=== PATIENT | male | born 1945 | race Native Hawaiian/Other Pacific Islander ===

== ENCOUNTER 2017-01-12 08:50 | Day surgery (SDC) | payer MEDICARE, OTHER ==
[2017-01-04 17:31] VITALS: BMI 25.0
[2017-01-12] MEDS ORDERED: Bupivacaine-Epi 0.5%-1:200,000 PF Inj ONE (12:29)
[2017-01-12] MEDS ORDERED: Lactated Ringer's 1,000 ML IV ONE (12:43)
[2017-01-12] MEDS ORDERED: ceFAZolin IV 1 gm in Dextrose 1 GM/50 ML BAG IVPB ONE (12:47)
[2017-01-12] MEDS ORDERED: Midazolam 2 MG/2 ML VIAL ONE ×2 (12:51→12:53)
[2017-01-12] MEDS ORDERED: Oxycodone/Acetaminophen 5/325 mg Tab PO PRN (13:19)
--- NOTE | 2017-01-12 13:57 | PCM.SURG1 ---
Surgeon's Initial Post Op Note - Surgeon's Notes Surgeon: Dr. Jacome Litigation Secretary: Dr. Winters Type of Anesthesia: Local Pre-Operative Diagnosis: posterior neck sebaceous cyst Operative Findings: purulent blood tinged fluid, thin cyst wall Post-Operative Diagnosis: same Operation Performed: sebaceous cyst excision, posterior neck Specimen/Specimens Removed: sebaceous cyst cavity, fluid Estimated Blood Loss: EBL {In ML}: 10 Blood Products Given: N/A Drains Used: No Drains Post-Op Condition: Good Date of Surgery/Procedure: 01/12/17 Time of Surgery/Procedure: 13:56
[2017-01-12 15:32] VITALS: RESP 18; O2SAT 98
[2017-01-12 16:28] VITALS: BP 131/57; PULSE 60; TEMP 98
--- NOTE | 2017-01-19 13:12 | OP ---
PROCEDURE DATE: 01/12/2017 PREOPERATIVE DIAGNOSIS: Mass posterior neck area. POSTOPERATIVE DIAGNOSIS: Large epidermal cyst. PROCEDURE PERFORMED: Excision. FINDINGS: There is a 3 cm well-circumscribed mass on the posterior portion of the neck. This is mov able, but with some hyperemic and red surface suggestive of infection. PROCEDURE: Under local anesthesia utilizing lidocaine 2% with epinephrine, patient was prepared and draped in sterile fashion. An incision was made across and extended down to subcutaneous tissue. Th e mass was then totally excised, but this was purulent in nature. Therefore, the capsule was then ex cised together with some normal tissue. The wound was irrigated and then packed with iodoform gauze. No attempt at putting stitches was made. Dressing was applied. Procedure terminated. No complica tions. Matthew Jacome MD cc: [id number] TT: 01/19/2017 13:11:56 en
== END 2017-01-12 16:25 | disposition home or self-care (01) ==
LOC: C.SDS 08:50
PROVIDERS: ATTEND Surgery
DX: L72.3 Sebaceous cyst (principal); L72.0 Epidermal cyst
CPT/HCPCS: 11423; 82948; 87070; 88304; J0690; J2250; J3010; J7120